=== PATIENT | male | born 1970 | race Caucasian/White ===

== ENCOUNTER 2020-07-27 11:25 | Outpatient (NON) | payer OTHER, SELFPAY ==
[2020-07-28 00:45] LABS: SARS-CoV-2 RNA PCR Negative
== END 2020-07-27 11:26 ==
PROVIDERS: PCP Family Medicine; Visit Provider Family Medicine
DX: J01.90 Acute sinusitis, unspecified (principal); Z20.828 Contact with and (suspected) exposure to other viral communicable diseases
CPT/HCPCS: 87635; C9803; U0003

== ENCOUNTER 2021-12-13 13:17 | Outpatient (RCR) | payer OTHER, SELFPAY ==
[2021-12-13] MEDS: ACETAMINOPHEN 325 MG TABLET 650 MG PO (13:29)
[2021-12-13] MEDS: diphenhydrAMINE HCl CAP 25 MG CAPSULE PO (13:30)
[2021-12-13] MEDS: FAMOTIDINE 20 MG TABLET PO (13:32)
[2021-12-13 13:43] VITALS: BP 143/92; PULSE 79; RESP 18; TEMP 36.8; O2SAT 98
[2021-12-13] MEDS: BEBTELOVIMAB 175 MG/2 ML VIAL IV PUSH (13:50)
[2021-12-13 14:45] VITALS: BP 140/93; PULSE 71; RESP 18; O2SAT 99
== END 2021-12-13 16:00 ==
LOC: AMCINF 13:17
PROVIDERS: PCP Family Medicine; Visit Provider Internal Medicine Hematology & Oncology
DX: U07.1 COVID-19 (principal); I10 Essential (primary) hypertension
CPT/HCPCS: A9270; M0222; Q0222

== ENCOUNTER 2022-08-17 13:32 | Emergency (ER) | payer OTHER, SELFPAY ==
--- NOTE | ~2022-08-17 | XR_ITS ---
EXAMINATION: XR chest 2V 08/17/2022 14:28 INDICATION: Cough PROCEDURE: 2 view chest COMPARISON: Comparison to multiple prior studies sequentially, with oldest reviewed study dated 10/31. FINDINGS: The lungs are clear. The cardiomediastinal silhouette is within normal limits. There are no pleural effusions. There is no pneumothorax suspected. IMPRESSION: 1: NO ACUTE CARDIOPULMONARY DISEASE. Reviewed, dictated and finalized at location A. [employer]
[2022-08-17 13:45] VITALS: BP 156/109; PULSE 73; RESP 16; TEMP 36.6; O2SAT 97
--- NOTE | 2022-08-17 14:13 | ED.GENADULT ---
HPI - General Adult General Chief complaint: Upper Respiratory Infection Stated complaint: Cough, Sinus Source: patient Mode of arrival: ambulatory Limitations: no limitations History of Present Illness HPI narrative: Patient presents for evaluation of sick symptoms since Friday of this week. Symptoms include sinus congestion, and productive cough of yellow/ brown sputum. He has also had a mild sore throat. Denies any fever, chills, nausea, vomiting, diarrhea, shortness of breath. No recent sick contacts was knowledge. He does not smoke. He had COVID in 2020. He is only using a nasal spray for his symptoms. No additional complaints or concerns. Related Data Home Medications Medication Instructions Recorded Confirmed sildenafil (pulm.hypertension) 20 See Rx Instructions PO ONCE 08/26/19 11/22/21 mg tablet Allergies Allergy/AdvReac Type Severity Reaction Status Date / Time cefuroxime Allergy Intermediate HEADACHE, Verified 08/17/22 13:49 FELT CRAZY clarithromycin Allergy Intermediate HEADACHE, Verified 08/17/22 13:49 FELT CRAZY morphine Allergy Unknown CHEST Verified 08/17/22 13:49 PAIN/SL. RASH Penicillins Allergy Unknown RASH Verified 08/17/22 13:49 Review of Systems Review of Systems: CONSTITUTIONAL: Denies fever, chills, or sweats. EYES: Denies visual changes, redness, or discharge. ENT: Reports sinus congestion and mild sore throat CARDIOVASCULAR: Denies chest pain, palpitations, or edema. RESPIRATORY: reports productive cough of yellow/brown sputum. Denies shortness of breath. GASTROINTESTINAL: Denies abdominal pain, nausea, vomiting, or diarrhea. GENITOURINARY: Denies dysuria or hematuria. SKIN: Denies rash or itching. MUSCULOSKELETAL: Denies back pain, joint pain, or myalgia. NEUROLOGIC: Denies headache, numbness, dizziness, or weakness. PSYCHIATRIC: Denies anxiety or depression. [facility] Past Medical History Medical History (Updated 08/17/22 @ 14:54 by Dago Richardson, [facility], ) Abnormal fasting glucose Glucose 106 on 01/22/2021 Acute sinusitis, unspecified ADHD (attention deficit hyperactivity disorder), inattentive type Arthralgia BMI 32.0-32.9,adult BMI 34.0-34.9,adult Chronic left shoulder pain Colon cancer screening Cough COVID-19 (~12/11/21) Encounter for prostate cancer screening Encounter for wellness examination in adult Herpes zoster Low back pain Male erectile dysfunction, unspecified Microscopic hematuria Myalgia Obesity (BMI 30.0-34.9) Ureteral stone Surgical History Surgical History History of shoulder surgery Family History Family History Mother Family history non-contributory Social History Social History Smoking status: Never smoker Alcohol intake: current Substance use: never Substance use type: does not use Gender identity (if verbalized by the patient): Male Spiritual care concerns: No Exam Narrative: GENERAL: Well-appearing, well-nourished, and in no acute distress. HEAD: Normocephalic, atraumatic. EYES: PERRLA and EOMI. ENT: Nares clear, no rhinorrhea or epistaxis. Mucous membranes moist. there is some posterior pharyngeal erythema without exudate. Bilateral TMs pearly lu nonbulging NECK: Supple. No adenopathy or masses. No carotid bruits or JVD CHEST: Clear to auscultation. No respiratory distress. No wheezes rales or rhonchi HEART: Regular rate and rhythm. No murmur heard. Normal peripheral pulses. ABDOMEN: Soft, nontender, nondistended, normal active bowel sounds. EXTREMITIES: Normal range of motion. No edema. SKIN: Warm, dry, no rash. NEURO: No focal deficits. Alert and oriented x3. PSYCH: Normal mood and affect. Course Course Emergency Course: This is a 52-year-old male who presented for evaluation
== END 2022-08-17 16:30 | disposition home or self-care (01) ==
PROVIDERS: Emergency Provider Nurse Practitioner; PCP Family Medicine
DX: J06.9 Acute upper respiratory infection, unspecified (principal); Z20.822 Contact with and (suspected) exposure to COVID-19; Z86.16 Personal history of COVID-19; F90.9 Attention-deficit hyperactivity disorder, unspecified type
CPT/HCPCS: 71046; 87426; 87804; 99213; C9803; G0463

== ENCOUNTER 2023-06-30 02:40 | Day surgery (SDC) | payer OTHER, SELFPAY ==
[2023-06-17 12:55] VITALS: BMI 33.6
[2023-06-30 08:23] VITALS: BP 165/109; PULSE 84; RESP 18; TEMP 36.4; O2SAT 100
[2023-06-30] MEDS: LACTATED RINGERS 1,000 ML 150 ML IV CONT (08:39)
--- NOTE | 2023-06-30 08:45 | PM.HPGS ---
History of Present Illness History of Present Illness Consent: Risks, benefits, and alternatives have been discussed and questions answered. Patient agrees to proceed with procedure. Chief complaint: GERD; neoplasm screening Narrative: Leonidas Avalos is a 53 year old male Presents for both colonoscopy and EGD. Patient presents for neoplasia screening colonoscopy. He reports that his current weight appetite bowel movements are normal. He denies abdominal pain. He has had no bleeding. Family history noncontributory. Patient also complains of ongoing heartburn. Patient currently takes omeprazole 40mg p.o. in the morning. He states throughout the day will have intermittent heartburn. This not related to diet her activity. This often is relieved with extra antacids. He denies any dysphagia. He has had no bleeding. Follow-up EGD is advised because ongoing heartburn despite treatment with good dose of PPI acid suppression. Review of Systems Review of Systems: Review of systems noncontributory. [facility] Past Medical History Medical History (Updated 04/14/23 @ 09:25 by Hasmukh Lopez MD) Abnormal fasting glucose Glucose 106 on 01/22/2021. fasting glucose 93 with hemoglobin A1c 5.2 on 11/29/2022. Acute sinusitis, unspecified ADHD (attention deficit hyperactivity disorder), inattentive type Arthralgia BMI 32.0-32.9,adult BMI 34.0-34.9,adult Chronic left shoulder pain Colon cancer screening Cough COVID-19 (~12/11/21) Elevation of muscle enzyme (11/29/22) CPK 548, aldolase 11.2 on 11/29/2022. CPK 120 with aldolase 3.9 on 12/20/2022. Encounter for prostate cancer screening PSA 0.32 on 11/29/2022. Encounter for wellness examination in adult Herpes zoster Low back pain Male erectile dysfunction, unspecified Microscopic hematuria Trace blood on 01/03/2020. 3+ blood on 11/29/2022. Myalgia CPK elevated at 548 with normal up to 196 with aldolase elevated at 11.2 with normal up to 8.1 with ROSHAN negative, rheumatoid factor negative, magnesium normal at 2.2 on 11/29/2022. Obesity (BMI 30.0-34.9) Obstructive sleep apnea long history of NIKKIE with failure on CPAP due to intolerance for this. Treated surgically with tonsillectomy and uvuloplasty. Post-COVID chronic cough (~12/11/21) Ureteral stone Surgical History Surgical History History of shoulder surgery Family History Family History Mother Family history non-contributory Social History Social History (Updated 09/25/22 @ 08:04 by Collette Walker MA) Smoking status: Never smoker Alcohol intake: current Alcohol use details: 1-2 drinks monthly Substance use: never Substance use type: does not use Lack of Transportation: No Lack of Food: Never True Current Housing: I Have Housing Concerned About Future Housing: No Difficulty Paying Gas/Electric Bills: No Difficulty Paying for Meds: No Currently Unemployed: No Education: Master's Degree or Higher Difficulty w/ Childcare or Family Care: No Living arrangements: with family Gender identity (if verbalized by the patient): Male Spiritual care concerns: No Meds Home Medications and Allergies Home Medications Medication Instructions Recorded Confirmed Type sildenafil (pulm.hypertension) 20 See Rx Instructions PO ONCE 08/26/19 06/30/23 History mg tablet tamsulosin 0.4 mg capsule (Flomax) 0.4 mg PO DAILY #90 caps 08/26/22 06/30/23 Rx aripiprazole 5 mg tablet (Abilify) 5 mg PO DAILY #30 tabs 02/04/23 06/30/23 Rx escitalopram oxalate 20 mg tablet 20 mg PO DAILY #90 tabs 02/04/23 06/30/23 Rx (Lexapro) omeprazole 20 mg tablet,delayed 20 mg PO DAILY 04/14/23 06/30/23 History release metoprolol succinate 100 mg 100 mg PO DAILY #90 tabs 04/21/23 06/30/23 Rx tablet,extended release 24 hr dextroamphetamine-amphetamine 15 15 mg PO BID #60 tabs 09
--- NOTE | 2023-06-30 09:14 | WPDANESEPPF ---
Anes - Initial Pre Proc Eval Procedure: Operation Date: 06/30/23 09:30 Proposed Procedures p Esophagogastroduodenoscopy & Screening Colonoscopy - Poli Beck MD Date/Time: 06/30/23 09:14 Surgeon: Poli Beck MD Pre Op Diagnosis: GERD; neoplasm screening Patient Data Age: 53 Gender: M Height: 1.7 m Weight: 100.3 kg Last Vital Signs Temp 97.6 F 06/30/23 08:23 Pulse 84 06/30/23 08:23 Resp 18 06/30/23 08:23 BP 165/109 H 06/30/23 08:23 Pulse Ox 100 06/30/23 08:23 O2 Del Method Room Air 06/30/23 08:23 Allergies Allergy/AdvReac Type Severity Reaction Status Date / Time cefuroxime Allergy Intermediate HEADACHE, Verified 06/30/23 08:20 FELT CRAZY clarithromycin Allergy Intermediate HEADACHE, Verified 06/30/23 08:20 FELT CRAZY morphine Allergy Unknown CHEST Verified 06/30/23 08:20 PAIN/SL. RASH Penicillins Allergy Unknown RASH Verified 06/30/23 08:20 Home Medications Medication Instructions Recorded Confirmed Type sildenafil (pulm.hypertension) 20 See Rx Instructions PO ONCE 08/26/19 06/30/23 History mg tablet tamsulosin 0.4 mg capsule (Flomax) 0.4 mg PO DAILY #90 caps 08/26/22 06/30/23 Rx aripiprazole 5 mg tablet (Abilify) 5 mg PO DAILY #30 tabs 02/04/23 06/30/23 Rx escitalopram oxalate 20 mg tablet 20 mg PO DAILY #90 tabs 02/04/23 06/30/23 Rx (Lexapro) omeprazole 20 mg tablet,delayed 20 mg PO DAILY 04/14/23 06/30/23 History release metoprolol succinate 100 mg 100 mg PO DAILY #90 tabs 04/21/23 06/30/23 Rx tablet,extended release 24 hr dextroamphetamine-amphetamine 15 15 mg PO BID #60 tabs 06/03/23 06/30/23 Rx mg tablet (Adderall) Patient hx anesthesia problems: none Family hx anesthesia problems: none Results Review: All pre-operative results and documents have been reviewed as part of the pre-operative evaluation. [facility] Past Medical History Medical History (Updated 04/14/23 @ 09:25 by Hasmukh Lopez MD) Abnormal fasting glucose Glucose 106 on 01/22/2021. fasting glucose 93 with hemoglobin A1c 5.2 on 11/29/2022. Acute sinusitis, unspecified ADHD (attention deficit hyperactivity disorder), inattentive type Arthralgia BMI 32.0-32.9,adult BMI 34.0-34.9,adult Chronic left shoulder pain Colon cancer screening Cough COVID-19 (~12/11/21) Elevation of muscle enzyme (11/29/22) CPK 548, aldolase 11.2 on 11/29/2022. CPK 120 with aldolase 3.9 on 12/20/2022. Encounter for prostate cancer screening PSA 0.32 on 11/29/2022. Encounter for wellness examination in adult Herpes zoster Low back pain Male erectile dysfunction, unspecified Microscopic hematuria Trace blood on 01/03/2020. 3+ blood on 11/29/2022. Myalgia CPK elevated at 548 with normal up to 196 with aldolase elevated at 11.2 with normal up to 8.1 with ROSHAN negative, rheumatoid factor negative, magnesium normal at 2.2 on 11/29/2022. Obesity (BMI 30.0-34.9) Obstructive sleep apnea long history of NIKKIE with failure on CPAP due to intolerance for this. Treated surgically with tonsillectomy and uvuloplasty. Post-COVID chronic cough (~12/11/21) Ureteral stone Surgical History Surgical History History of shoulder surgery Family History Family History Mother Family history non-contributory Social History Social History (Updated 09/25/22 @ 08:04 by Collette Walker MA) Smoking status: Never smoker Alcohol intake: current Alcohol use details: 1-2 drinks monthly Substance use: never Substance use type: does not use Lack of Transportation: No Lack of Food: Never True Current Housing: I Have Housing Concerned About Future Housing: No Difficulty Paying Gas/Electric Bills: No Difficulty Paying for Meds: No Currently Unemployed: No Education: Master's Degree or Higher Difficulty w/ Childcare or Family Care: No
--- NOTE | 2023-06-30 09:39 | SUR.OPER ---
egd ended at 932 and colonoscopy started at 938.
[2023-06-30] MEDS: SIMETHICONE ORAL SUSPENSION 20 MG/0.3 ML 30 ML BOTTLE 0.6 ML IRRIGATION (09:44)
[2023-06-30 09:52] VITALS: BP 142/86; PULSE 98; RESP 17; O2SAT 98
[2023-06-30 10:02] VITALS: BP 125/83; PULSE 88; RESP 21; O2SAT 98
[2023-06-30 10:12] VITALS: BP 126/81; PULSE 83; RESP 20; O2SAT 98
== END 2023-06-30 10:23 | disposition home or self-care (01) ==
PROVIDERS: PCP Family Medicine; Visit Provider Internal Medicine Gastroenterology
PROC: 0DJ08ZZ Inspection of Upper Intestinal Tract, Via Natural or Artificial Opening Endoscopic (ICD-10-PCS; CPT 43235; principal; 2023-06-30 09:30)
DX: Z12.11 Encounter for screening for malignant neoplasm of colon (principal); K57.30 Diverticulosis of large intestine without perforation or abscess without bleeding; K21.9 Gastro-esophageal reflux disease without esophagitis; G47.33 Obstructive sleep apnea (adult) (pediatric); F90.0 Attention-deficit hyperactivity disorder, predominantly inattentive type; E66.9 Obesity, unspecified; Z68.34 Body mass index [BMI] 34.0-34.9, adult
CPT/HCPCS: 45378; 43239; 87081; J2704; J7120

== ENCOUNTER 2024-11-12 15:48 | Emergency (ER) | payer BC, SELFPAY ==
[2024-11-12 15:59] VITALS: BP 172/115; PULSE 84; RESP 16; TEMP 36.4; O2SAT 98
--- NOTE | 2024-11-12 16:22 | ED.SKABFB ---
HPI - Skin/Abscess/Foreign Bdy General Chief complaint: Skin/Abscess/Foreign Body Stated complaint: INFECTED BUMP ON BACK OF HEAD Time Seen by Provider: 11/12/24 15:49 Source: patient Mode of arrival: ambulatory Limitations: no limitations History of Present Illness HPI narrative: Patient is a 54-year-old male who presents with hip on the back lower left side of head that started 3 days ago. Reports it is now tender to touch. denies any drainage.Does wear CPAP every night in the strap rubs Related Data Home Medications ?Medication ?Instructions ?Recorded ?Confirmed ?Last Taken ?Type testosterone cypionate 200 mg/mL 80 mg IM . twice weekly 05/24/24 11/12/24 Unknown History intramuscular oil Allergies Allergy/AdvReac Type Severity Reaction Status Date / Time cefuroxime Allergy Intermediate HEADACHE, Verified 11/12/24 16:00 FELT CRAZY clarithromycin Allergy Intermediate HEADACHE, Verified 11/12/24 16:00 FELT CRAZY morphine Allergy Unknown CHEST Verified 11/12/24 16:00 PAIN/SL. RASH Penicillins Allergy Unknown RASH Verified 11/12/24 16:00 Review of Systems Review of Systems: All systems reviewed & are unremarkable except as noted in HPI and below Constitutional: Constitutional: Denies body ache(s), Denies chills, Denies fatigue, Denies fever(s), Denies headache(s), Denies malaise and Denies weakness Eyes: Eyes: Denies blurry vision, Denies irritation and Denies loss of vision ENT: Denies otalgia, Denies headache(s), Denies nasal discharge, Denies sinus pain and Denies sore throat Cardiovascular: Cardiovascular: Denies chest pain, Denies irregular heart rhythm and Denies dyspnea Respiratory: Respiratory: Denies dyspnea Gastrointestinal: Gastrointestinal: Denies abdominal pain, Denies melena, Denies hematochezia, Denies diarrhea, Denies nausea and Denies vomiting Musculoskeletal: Musculoskeletal: Denies back pain, Denies myalgias and Denies arthralgias Integumentary/Breasts: Skin/Breast: Denies pruritus, Denies rash and Reports wounds Neurologic: Denies headache(s), Denies loss of vision and Denies weakness Psychiatric: Psychiatric: Reports no additional psychiatric complaints Endocrine: Endocrine: Denies fatigue PMFSH Past Medical History Medical History Hypogonadism male Testosterone 808 with free testosterone 20.5 on 04/10/2024. Vitamin B12 deficiency Level low at 317 on 04/10/2024. Candidiasis Obstructive sleep apnea Treated surgically with tonsillectomy and uvuloplasty. Repeat home sleep study 11/23/2023 with moderate to severe NIKKIE with oxygen saturation down to 86%. Start APAP 4-20 cm of water pressure with interface. Elevation of muscle enzyme (11/29/22) CPK 548, aldolase 11.2 on 11/29/2022. CPK 120 with aldolase 3.9 on 12/20/2022. Post-COVID chronic cough (~12/11/21) Obesity (BMI 30.0-34.9) COVID-19 (~12/11/21) Arthralgia Myalgia CPK elevated at 548 with normal up to 196 with aldolase elevated at 11.2 with normal up to 8.1 with ROSHAN negative, rheumatoid factor negative, magnesium normal at 2.2 on 11/29/2022. Abnormal fasting glucose Glucose 106 on 01/22/2021. fasting glucose 93 with hemoglobin A1c 5.2 on 11/29/2022. Fasting glucose 95 with hemoglobin A1c 5.6 on 04/10/2024. BMI 34.0-34.9,adult BMI 32.0-32.9,adult Chronic left shoulder pain Acute sinusitis, unspecified Low back pain Herpes zoster Ureteral stone Microscopic hematuria Trace blood on 01/03/2020. 3+ blood on 11/29/2022. Encounter for wellness examination in adult Colon cancer screening (06/30/23) Normal colonoscopy 06/30/2023 with recheck in 10 years. Encounter for prostate cancer screening PSA 0.32 on 11/29/2022. PSA 0.46 on 04/10/2024. ADHD (attention deficit hyperactivity disorder), inattentive type Cough Male erectile dysfunction, unspecified Surgical History Surgical History History of shoulder surgery Family History Family History Mother Family history non-contributory Social History Social History Smoking status: Never smoker Alcohol intake: current Alcohol use details: 1-2 drinks monthly Substance use: never Substance use type: does not use Lack of Transportation: No Lack of Food: Never True Current Housing: I Have Housing Concerned About Future Housing: No Difficulty Paying Gas/Electric Bills: No Difficulty Paying for Meds: No Currently Unemployed: No Education: Master's Degree or Higher Difficulty w/ Childcare or Family Care: No Living arrangements: with family Gender identity (if verbalized by the patient): Male Spiritual care concerns: No Comments At time of signature, agree with nursing past medical, surgical, social and family history. There is no relevant family history pertinent to the presenting complaint. Exam Const: General: cooperative, healthy appearing, comfortable, no acute distress and well nourished Nutritional Appearance: well nourished Orientation/consciousness: patient oriented x3 Limitations: no limitations HENMT: Head: normal to inspection, normocephalic and atraumatic Head images:  1. 1 cm area of erythema and TTP. NO active drainage or fluctuance Ears: hearing grossly normal bilaterally and external ears normal Face/Nose/Sinus: Normal external nose present, normal facial exam and face symmetric Face and sinus: normal facial exam and face symmetric Mouth: Yes lip normal Eyes: General: appearance normal, both eyes and all related structures Alignment and Position: alignment normal and position normal Periorbital: periorbital findings normal Eyelids: eyelids normal Pupils: Equal, round and reactive pupils present EOM: EOMs intact bilaterally Neck: Neck: normal visual inspection, full ROM and supple Chest: Chest palpation & inspection: normal inspection of the chest Resp: Effort & Inspection: normal respiratory effort and able to speak in complete sentences Auscultation: clear to auscultation bilaterally Cardio: Rate: regular rate Rhythm: regular rhythm Heart sounds: S1 normal heart sound present and S2 normal heart sound present GI: Inspection: normal to inspection Skin: General skin exam: normal color and no rashes or lesions noted Neuro: General: patient oriented x3 and moves all extremities Cranial nerves: Yes Equal, round and reactive pupils present Speech: normal speech Gait exam (Neuro): Normal gait present Extrem: General: normal to inspection, full ROM and no edema Psych: Appearance: grossly normal and well kempt Mental Status: mental status grossly normal Speech and movement: Normal speech and movement present Affect: normal affect Attitude: cooperative Thought process: Normal thought process present Course Course Emergency Course: Patient is aware of diagnosis, understands and agrees to treatment plan. Anticipatory guidance given. Patient agrees to follow-up as directed and is aware of reasons to seek care at the emergency department. Portions of this record may have been created with voice recognition software Level of Care: Express Care Visit Vital Signs Vital signs: Vital Signs Temperature 36.4 C 11/12/24 15:59 Pulse Rate 84 11/12/24 15:59 Respiratory Rate 16 11/12/24 15:59 Blood Pressure 172/115 H 11/12/24 15:59 Pulse Oximetry 98 11/12/24 15:59 Temperature 36.4 C 11/12/24 15:59 Pulse Rate 84 11/12/24 15:59 Respiratory Rate 16 11/12/24 15:59 Blood Pressure 172/115 H 11/12/24 15:59 Pulse Oximetry 98 11/12/24 15:59 Reviewed MDM - Skin/Abscess/Foreign Bdy MDM Narrative Medical decision making narrative: Pt well hydrated appearing, in no respiratory distress, hemodynamically stable. Recommend supportive care. The patient is stable at time of discharge the clinical impression was discussed and the patient was given the opportunity to ask questions, which were addressed as completely as possible given the information available at present. Anticipatory guidance and return to care precautions were discussed and the importance of primary care follow-up was stressed and encouraged. The patient voiced understanding of the plan, indications to return, and the need for follow-up. Exam findings show no acute concerns or changes Patient is appropriate for outpatient treatment and follow-up. Differential Diagnosis Differential diagnosis: Likely abscess of skin or subcutaneous tissue, cellulitis, insect bites and contact dermatitis Medical Records Attestation: I reviewed the patient's medical records. Discharge Plan Discharge Clinical Impression: Cellulitis Patient Disposition: Home, Self-Care Condition: Stable Instructions: Cellulitis (ED) Additional Instructions: Please follow up with your Primary Care Doctor within 48-72 hours - call for an appointment. Rest and elevate affected area; apply moist heat 3-4 times daily for 10-15 minutes. Take Motrin 600mg every 8 hours with food for pain. Please take Antibiotics as directed. If you experience any worsening redness, swelling, streaking (red lines), fever or chills please go to the ER Your blood pressure was elevated above 120/80 today at Urgent Care. This puts you above the threshold for follow up visit with a primary care provider. High blood pressure does not usually cause any symptoms, however it may lead to kidney failure, stroke, heart disease just to name a few if untreated . Many people are anxious when seeing a provider or nurse. As a result, you are not diagnosed with hypertension at this time unless your blood pressure is persistently high at two office visits at least one week apart. Some things that can help lower blood pressure are lifestyle modifications, such as light exercise, decreased salt in diet, and weight loss. It is important to follow up with a PCP about this within 1 week. Patient Language: Pashto Prescriptions: New cephalexin 500 mg capsule 500 mg PO QID 7 Days Qty: 28 0RF mupirocin 2 % ointment 1 applic topical BID Qty: 15 0RF No Action ezetimibe [Zetia] 10 mg tablet 10 mg PO DAILY Qty: 90 3RF testosterone cypionate 200 mg/mL oil 80 mg IM . twice weekly Rx Instructions: as a single dose sildenafil (pulm.hypertension) 20 mg tablet See Rx Instructions PO ONCE Qty: 90 3RF Rx Instructions: take up to 5 tablets 1 hour before intercourse as needed PO once PRN; tamsulosin [Flomax] 0.4 mg capsule 0.4 mg PO DAILY Qty: 90 3RF aripiprazole [Abilify] 5 mg tablet 5 mg PO DAILY Qty: 30 11RF escitalopram oxalate [Lexapro] 20 mg tablet 20 mg PO DAILY Qty: 90 3RF metoprolol succinate 100 mg tablet extended release 24 hr 100 mg PO DAILY Qty: 90 3RF omeprazole 40 mg capsule,delayed release(DR/EC) 40 mg PO .BID Qty: 60 4RF dextroamphetamine-amphetamine [Adderall] 15 mg tablet 15 mg PO BID Qty: 60 0RF Rx Instructions: administer doses at least 4-6 hours apart. Follow-up/Referrals: Hasmukh Lopez MD [Primary Care Provider] - 3 Days Time of Disposition: 16:42
== END 2024-11-12 16:44 | disposition home or self-care (01) ==
PROVIDERS: Emergency Provider Nurse Practitioner Family; PCP Family Medicine
DX: L03.811 Cellulitis of head [any part, except face] (principal); F90.9 Attention-deficit hyperactivity disorder, unspecified type; E66.9 Obesity, unspecified; Z68.34 Body mass index [BMI] 34.0-34.9, adult; Z86.16 Personal history of COVID-19
CPT/HCPCS: 99213; G0463